=== PATIENT | female | born 1950 | race Caucasian/White ===

== ENCOUNTER 2017-12-11 08:55 | Day surgery (SDC) | payer BC ==
[2017-12-09 15:55] VITALS: BMI 31.3
[~2017-12-11 08:55] MED LIST: LACTATED RINGERS 1,000 ML IV SCH
[2017-12-11 09:39] VITALS: RESP 16; TEMP 98.3
[2017-12-11] MEDS ORDERED: LIDOCAINE 1% 20 ML VIAL (10MG/ML) FOR IV START INTRADERMA ONE (09:52)
[2017-12-11] MEDS ORDERED: PROPOFOL 10 MG/ML 20 ML VIAL IV ONE (09:55)
[2017-12-11] MEDS ORDERED: fentaNYL (PF) 50 MCG/ML 2 ML AMP ONE (09:55)
[2017-12-11] MEDS ORDERED: MIDAZOLAM 2 MG/2 ML VIAL ONE (09:55)
--- NOTE | 2017-12-11 10:11 | P.PCN ---
Date of Procedure: 12/11/17 Procedure(s) Performed: BRIEF HISTORY: Patient is a 66-year-old pleasant white female, scheduled for an elective colonoscopy as a part of screening for colorectal neoplasia. Her last colonoscopy was 10 years ago. PROCEDURE PERFORMED: Colonoscopy. PREOPERATIVE DIAGNOSIS: Screening for colon cancer. IV sedation per Anesthesia. PROCEDURE: After informed consent was obtained, the patient, was brought into the endoscopy unit. IV sedation was administered by Anesthesia under continuous monitoring. Digital rectal examination was normal. Initially the Olympus CF- 160 flexible video colonoscope was then inserted in the rectum, gradually advanced into the cecum without any difficulty. Careful examination was performed as the scope was gradually being withdrawn. Ileocecal valve and the appendiceal orifice were visualized and appeared normal. Prep was excellent. Mucosa of the cecum, ascending colon, transverse colon, descending colon, sigmoid colon, and rectum appeared normal. Scattered sigmoid diverticulosis. Retroflexion was performed in the rectum and no lesions were seen. The patient tolerated the procedure well. IMPRESSION: Normal-appearing colon from rectum to cecum with no evidence of colorectal neoplasia. Scattered sigmoid diverticulosis. RECOMMENDATIONS: Findings of this examination were discussed with the patient as well as a family. She was advised to have a repeat screening colonoscopy in 10 years.
[2017-12-11 10:57] VITALS: BP 143/72; PULSE 65
== END 2017-12-11 11:09 | disposition home or self-care (01) ==
LOC: ORWHC2ENDO 08:55
PROVIDERS: ATTEND Internal Medicine Gastroenterology
DX: Z12.11 Encounter for screening for malignant neoplasm of colon (principal); K57.30 Diverticulosis of large intestine without perforation or abscess without bleeding; E07.9 Disorder of thyroid, unspecified; Z79.890 Hormone replacement therapy
CPT/HCPCS: J2250; J3010; J2704; G0121

== ENCOUNTER → 2017-12-15 | Outpatient (CLI) | payer BC ==
--- NOTE | 2017-12-15 13:04 | BD ---
EXAMINATION TYPE: Axial Bone Density DATE OF EXAM: 12/15/2017 COMPARISON: NONE CLINICAL HISTORY: 67 YR OLD FEMALE.....ICD-10 CODE Z78.0 POST ADITYA W/O HRT Height: 65 Weight: 196 FRAX RISK QUESTIONS: NONE RISK FACTORS HISTORY OF: History of Wrist Fracture: RT WRIST CHILD Active: YES Diet low in dairy products/other sources of calcium: NO Postmenopausal woman: 60 YRS OLD MEDICATIONS: Thyroid Medications: YES, SYNTHROID How Lon YRS Additional Medications: VIT D3 Additional History: NOTHING ADDITIONAL TO NOTE EXAM MEASUREMENTS: Bone mineral densitometry was performed using the Sproxil System. Bone mineral density as measured about the Lumbar spine is: ----- L1-L4(G/cm2): 1.144 T Score Values are as follows: ----- L1: -0.2 ----- L2: -0.6 ----- L3: -0.4 ----- L4: -0.2 ----- L1-L4: -0.3 Bone mineral density FIRST BONE DENSITY ......BASELINE STUDY Bone mineral density about the R hip (g/cm2): 0.962 Bone mineral density about the L hip (g/cm2): 0.985 T Score values are as follows: -----R Neck: -0.7 -----L Neck: -1.1 -----R Total: -0.4 -----L Total: -0.2 Bone mineral density BASELINE STUDY FRAX5S: THERE IS A 8.1% CHANCE OF A MAJOR OSTEOPOROTIC FX AND A 0.7% FOR A HIP FX....PROBABILITY O F FX IN 10 YRS TIME IMPRESSION: No evidence for osteoporosis or osteopenia. NOTE: T-SCORE=SD OF THE YOUNG ADULT MEAN.
== END | disposition home or self-care (01) ==
LOC: RADBDWWP 08:40
PROVIDERS: ATTEND Internal Medicine
DX: Z13.820 Encounter for screening for osteoporosis (principal); Z78.0 Asymptomatic menopausal state
CPT/HCPCS: 77080

== ENCOUNTER → 2023-09-16 | Outpatient (CLI) | payer MEDICARE ==
--- NOTE | 2023-09-17 13:49 | MR ---
EXAMINATION TYPE: MR knee RT wo con DATE OF EXAM: 09/16/2023 COMPARISON: August 12, 2023 HISTORY: Right knee pain due to missing step and twisting leg about 3 months ago TECHNIQUE: Multiplanar, multisequence images of the knee is performed without IV contrast. FINDINGS: MEDIAL MENISCUS: Medial protrusion medial meniscus on coronal images. Truncated appearance to the pos terior horn with abnormal irregular signal extending to both superior and inferior articular surfaces . LATERAL MENISCUS: Anterior and posterior horns are intact without tear. CRUCIATE LIGAMENTS: The anterior and posterior cruciate ligaments are intact and unremarkable. COLLATERAL LIGAMENTS: The medial collateral ligament and lateral collateral ligament complex are inta ct. Mild/moderate fluid signal surrounds medial collateral ligament. EXTENSOR MECHANISM: Visualized quadriceps and patellar tendons are intact. EFFUSION: Moderate-sized suprapatellar joint effusion. POPLITEAL CYST: Moderate size septated popliteal/ibrahim cyst with adjacent fluid suggesting leak. TRICOMPARTMENT SPACES: Moderate tricompartment joint space loss with mild spurring. CARTILAGE: Chondromalacia patella with areas of full-thickness cartilaginous loss along the posterior patellar pole. Fissuring and cartilage loss medial tibiofemoral compartment. BONE MARROW SIGNAL: Areas diminished T1 and increased T2 signal involving the medial tibial plateau g reatest along the medial aspect. Small focal area of diminished T1 and increased T2 signal along the inferior posterior patellar pole sagittal image 21 OTHER: No additional significant abnormality is appreciated. IMPRESSION: 1. Tricompartment degenerative changes that are moderate to borderline advanced as detailed above. 2. Complex full-thickness tear posterior horn medial meniscus. 3. [id number] MCL sprain injury. 4. Moderate-size suprapatellar joint effusion. 5. Moderate-size leaking popliteal/Ibrahim's cyst.
== END | disposition home or self-care (01) ==
LOC: RADMRIMAIN 18:49
PROVIDERS: ATTEND Orthopaedic Surgery
DX: S83.241A Other tear of medial meniscus, current injury, right knee, initial encounter (principal); M17.11 Unilateral primary osteoarthritis, right knee

== ENCOUNTER → 2023-09-28 | Outpatient (CLI) | payer MEDICARE ==
[2023-09-28 18:45] LABS: HCT 40.3 % (37.2-46.3); HGB 13.2 g/dL (12.0-15.0); MCH 30.7 pg (27.0-32.0); MCHC 32.8 g/dL (32.0-37.0); MCV 93.7 FL (80.0-97.0); Mean Platelet Volume 8.8 FL (9.5-12.2); NRBC Per 100 WBC 0 X 10*3/uL (0.00-0.01); Platelet Count 339 X 10*3/uL (140-440); RDW 13.2 % (11.5-14.5)
[2023-09-28 18:46] LABS: Basophils # (A) 0.04 X 10*3/uL (0.00-0.10); Basophils % (A) 0.6 %; Eosinophils # (A) 0.21 X 10*3/uL (0.04-0.35); Eosinophils % (A) 3.3 %; Lymphocytes # (A) 1.73 X 10*3/uL (0.90-5.00); Monocytes # (A) 0.58 X 10*3/uL (0.20-1.00); Monocytes % (A) 9.1 %; Neutrophils # (A) 3.82 X 10*3/uL (1.80-7.70); Neutrophils % (A) 59.7 %
[2023-09-28 19:10] LABS: BUN/Creat Ratio 25.29 Ratio (12.00-20.00); Blood Urea Nitrogen 17.7 mg/dL (9.0-27.0); Carbon Dioxide 28.9 mmol/L (21.6-31.8); Chloride 104 mmol/L (96-109); Glucose 98 mg/dL (70-110); Potassium 4.2 mmol/L (3.5-5.5); Sodium 142 mmol/L (135-145)
== END | disposition home or self-care (01) ==
LOC: LABWHC1 09:57
PROVIDERS: ATTEND Orthopaedic Surgery
DX: Z01.812 Encounter for preprocedural laboratory examination (principal); M23.91 Unspecified internal derangement of right knee; R00.1 Bradycardia, unspecified
CPT/HCPCS: 36415; 80048; 85025; 93005

== ENCOUNTER 2023-10-09 08:17 | Day surgery (SDC) | payer MEDICARE ==
--- NOTE | 2023-10-08 08:26 | P.HPOR ---
History of Present Illness H&P Date: 10/08/23 Chief Complaint: Right knee pain The patient is a 72-year-old female who presents with right knee pain after a twisting injury approximately 5 months ago. She has medial pain along with swelling. She has difficult time weightbearing activities. She's tried bracing in addition to an injection medications with her assistance of her symptoms. She has intermittent catching and giving way. Review of Systems As per HPI Past Medical History Past Medical History: Cancer, Dialysis, Hyperlipidemia, Thyroid Disorder Additional Past Medical History / Comment(s): Melenoma in situ removed. History of Any Multi-Drug Resistant Organisms: None Reported Past Surgical History: Cholecystectomy, Orthopedic Surgery Additional Past Surgical History / Comment(s): adarsh rot cuff,partial thyroidectomy,colonoscopy Past Anesthesia/Blood Transfusion Reactions: No Reported Reaction Smoking Status: Never smoker - Past Family History Father Family Medical History: Cancer Additional Family Medical History / Comment(s): lung Medications and Allergies Home Medications Medication Instructions Recorded Confirmed Type Levothyroxine Sodium [Synthroid] 75 mcg PO QAM 12/09/17 10/07/23 History Cholecalciferol (Vitamin D3) 50 mg PO QAM 10/07/23 10/07/23 History [Vitamin D3 (50 Mcg = 2000 Iu)] Ibuprofen [Motrin] 400 mg PO Q6HR PRN 10/07/23 10/07/23 History Naproxen Sodium [Aleve] 220 mg PO Q6H PRN 10/07/23 10/07/23 History Rosuvastatin [Crestor] 5 mg PO HS 10/07/23 10/07/23 History Allergies Allergy/AdvReac Type Severity Reaction Status Date / Time No Known Allergies Allergy Verified 10/07/23 14:05 Physical Examination - Knee right Appearance: effusion Effusion grade: grade 1 Varus alignment in stance: 5 degrees Tenderness with palpation: anterior, medial Pain: throughout ROM Gait: limping ROM: extension: -10 degrees ROM: flexion: 120 degrees Crepitus with motion: Yes Strength: extension: 5/5 Strength: flexion: 5/5 Meniscal tests: medial meniscal tests: positive, medial joint line pain: positive Results Patient is a well-developed well-nourished female approximately 5 foot 5, 160 pounds of mesomorphic habitus. HEENT exam is nonfocal, neck is supple. She has painless passive motion of her right hip. Straight leg raise is negative. She is tender about the medial joint line of the right knee. Collaterals are stable, Michelle is negative, Kayce's elicits medial pain. Her distal neurovascular appears intact in the right lower extremity. - Diagnostic results Knee MRI: image reviewed (MRI of the right knee shows evidence of a posterior medial meniscal tear) Assessment and Plan Assessment: Right knee internal derangementsymptomatic medial meniscal tear Right knee moderate medial compartment osteoarthrosis Plan: I talked to the patient at length regarding her condition along with treatment options. At this point she is quite symptomatically having pain and mechanical symptoms after this acute twisting injury despite attempted conservative measures. After a thorough discussion she opts to proceed with surgery. We'll plan to proceed with arthroscopy of the right knee with probable partial medial meniscectomy. Risks and benefits were discussed at length in layman's terms. We will likely perform that as an outpatient procedure.
[~2023-10-09 08:17] MED LIST changes: -LACTATED RINGERS 1,000 ML IV SCH; +LIDOCAINE 1% (10MG/ML) FOR IV START INTRADERMA PRN; +MIDAZOLAM 2 MG/2 ML VIAL IV PRN
[2023-10-09] MEDS: LACTATED RINGERS 1,000 ML IV SCH (08:39)
[2023-10-09] MEDS: DEXAMETHASONE SOD PHOSPHATE 4 MG/ML 1 ML VIAL IV ONE (08:59)
[2023-10-09] MEDS: ONDANSETRON 4 MG/2 ML VIAL IVP ONE (09:00)
[2023-10-09] MEDS ORDERED: MIDAZOLAM 2 MG/2 ML VIAL ONE (10:13)
[2023-10-09] MEDS ORDERED: LIDOCAINE 1% INJ 10MG/ML (20 ML MDV) ONE (10:13)
[2023-10-09] MEDS ORDERED: LABETALOL 5 MG/ML VIAL MDV ONE (10:13)
[2023-10-09] MEDS ORDERED: PROPOFOL 10 MG/ML 20 ML VIAL IV ONE (10:13)
[2023-10-09] MEDS ORDERED: fentaNYL (PF) 50 MCG/ML 2 ML AMP ONE (10:13)
[2023-10-09] MEDS: EPINEPHrine (PF) 1 ML in SODIUM CHLORIDE 0.9% IRRIGATIO 3,000 ML IRRIGATION ONE (10:17)
--- NOTE | 2023-10-09 11:06 | P.OP ---
Date of Procedure: 10/09/23 Preoperative Diagnosis: Right knee internal derangement Postoperative Diagnosis: Right knee posterior medial meniscal tear/grade 23 chondral injury posterior central medial femoral condyle/large medial patellofemoral plica Procedure(s) Performed: Right knee arthroscopic partial medial meniscectomy/medial femoral chondrectomy/plica resection Anesthesia: LIDIA Surgeon: Wilbur Todd Estimated Blood Loss (ml): 10 Pathology: none sent Condition: stable Disposition: PACU Indications for Procedure: The patient is a 72-year-old female presents with persistent/progressive right knee pain and mechanical symptoms despite conservative measures. A discussion of the risks and benefits of operative intervention versus continued conservative measures was made with patient. She opted proceed with surgery. Operative risks to include infection, neurovascular injury, development of blood clots, possible incomplete resolution of symptoms, possible worsening symptoms and need for subsequent procedures was discussed. Informed consent was obtained. Operative Findings: As below Description of Procedure: The patient was brought to the operating room, and after induction of general anesthesia examined the right knee. Collaterals were stable, Michelle was negative, and posterior drawer was negative. The right lower extremity was prepped and draped in a normal fashion. A superior lateral portal was made through a 3 mm skin incision superior and lateral to the patella. This was used for outflow. A lateral portal was made through a 5 mm vertical skin incision lateral to the patella tendon above the joint line. Diagnostic arthroscopy was performed. On inspection of the medial compartment, and oblique tear involving the posterior horn of the medial meniscus in the white-red junction was noted.. This was debrided back to stable base with straight baskets and a motorized shaver. The remaining medial meniscus was stable and intact. A grade 2-3 chondral defect was noted involving the central posterior portion of the medial femoral condyle measuring 8 x 12 mm. The loose chondral edges were debrided with motorized shaver. On inspection of the notch, the anterior cruciate ligament appeared to be intact. On inspection of the lateral compartment, no significant cartilage or meniscal pathology was noted.. On inspection of the patellofemoral articulation, there was chondral fibrillation however no chondral fragments. There was a large medial patellofemoral plica that appeared to impinge on the medial femoral condyle. This was debrided with a motorized shaver.. The gutters were clear debris. The knee was then thoroughly irrigated. The portals were closed with Steri-Strips. A sterile dressing was applied in addition to a compression stocking. The patient was awoken from general anesthesia and transferred to recovery room in good condition. Blood loss was estimated at 10 mL. No complications were incurred.
[2023-10-09] MEDS: HYDROmorphone 0.5 MG/0.5 ML SYRINGE IVP PRN (11:34)
[2023-10-09] MEDS: hydrALAZINE HCL 20 MG/ML 1 ML VIAL IVP ONE (11:44)
[2023-10-09 11:56] VITALS: TEMP 97.2
[2023-10-09] MEDS: LACTATED RINGERS 1,000 ML IV ONE (12:02)
[2023-10-09] MEDS ORDERED: HYDROcodone/APAP 5-325MG 1 EACH TAB ONE (12:40)
[2023-10-09] MEDS: HYDROcodone/APAP 5-325MG 1 EACH TAB PO ONE (12:42)
[2023-10-09 13:07] VITALS: RESP 18
[2023-10-09 13:43] VITALS: BP 165/70; PULSE 80
== END 2023-10-09 13:42 | disposition home or self-care (01) ==
LOC: OR 08:17
PROVIDERS: ATTEND Orthopaedic Surgery
DX: M23.221 Derangement of posterior horn of medial meniscus due to old tear or injury, right knee (principal); M67.51 Plica syndrome, right knee; M17.11 Unilateral primary osteoarthritis, right knee; E78.5 Hyperlipidemia, unspecified; Z79.890 Hormone replacement therapy; Z79.899 Other long term (current) drug therapy; X50.1XXA Overexertion from prolonged static or awkward postures, initial encounter
CPT/HCPCS: 29881; J0360; J1100; J0690; J2405; J0171; J1170